=== PATIENT | female | born 1990 | race Two or more races ===

== ENCOUNTER 2023-07-21 13:41 | Outpatient (CLI) | payer OTHER | END 2023-07-21 13:44 | disposition home or self-care (01) | LOC: PRENATAL 13:41 | PROVIDERS: ATTEND Obstetrics & Gynecology Maternal & Fetal Medicine | DX: O36.80X0 Pregnancy with inconclusive fetal viability, not applicable or unspecified (principal); Z36.82 Encounter for antenatal screening for nuchal translucency; Z36.9 Encounter for antenatal screening, unspecified; Z3A.13 13 weeks gestation of pregnancy ==

== ENCOUNTER 2023-09-05 12:52 | Outpatient (CLI) | payer OTHER | END 2023-09-05 12:53 | disposition home or self-care (01) | LOC: PRENATAL 12:52 | PROVIDERS: ATTEND Obstetrics & Gynecology Maternal & Fetal Medicine | DX: O35.3XX0 Maternal care for (suspected) damage to fetus from viral disease in mother, not applicable or unspecified (principal); O44.00 Complete placenta previa NOS or without hemorrhage, unspecified trimester; O34.10 Maternal care for benign tumor of corpus uteri, unspecified trimester; D68.69 Other thrombophilia; Z3A.19 19 weeks gestation of pregnancy ==

== ENCOUNTER 2024-01-13 15:30 | Inpatient (IN) | payer OTHER ==
[~2024-01-13] VITALS: Ht 165.1 cm; Wt 73.9 kg
[2024-01-19] MEDS ORDERED: ADULT LOW DOSE81 M1 PO (07:11)
[2024-01-19] MEDS ORDERED: PRENATAL TABLE1 EAC1 PO (07:11)
[2024-01-19 08:39] LABS: HEMATOCRIT 34.4 % (36.0-45.00); HEMOGLOBIN 11.6 g/dL (12.0-15.00); MEAN CELL VOLUME 85.1 fL (80.00-100.00); MEAN CORPUSCULAR HEMOGLOBIN 28.7 pg (27.00-32.0); MEAN CORPUSCULAR HGB CONC 33.7 g/dl (32.0-36.0); RED BLOOD COUNT 4.05 M/uL (4.00-6.00); RED CELL DISTRIBUTION WIDTH 14.4 % (11.5-14.5)
[2024-01-19 09:14] LABS: ALBUMIN 2.4 gm/dL (3.4-5.0); BILIRUBIN TOTAL 0.76 mg/dL (0.3-1.2); CALCIUM 7.9 mg/dL (8.5-10.1); CREATININE SERUM 1.06 mg/dL (0.55-1.02); GFR 58.99; GLOBULINA 3.1 G/DL (2.4-3.5); POTASSIUM 4.35 mEq/L (3.5-5.1); TOTAL PROTEIN 5.5 gm/dL (6.4-8.2); URIC ACID 6.1 mg/dL (2.5-7.5)
[2024-01-19 09:18] LABS: INR < 0.93; PARTIAL THROMBOPLASTIN TIME 29.3 SECONDS (22.0-34.0); PROTHROMBIN TIME 9.6 SECONDS (9.0-11.5)
[2024-01-19 09:19] LABS: FIBRINOGEN 604 mg/dL (187.0-446.0)
[2024-01-19] MEDS ORDERED: MAGNESIUM SULFATE IN WATER 4 GM/100 ML PIGGYBACK IV ONE (09:23)
[2024-01-19 09:29] LABS: URINE APPEARANCE Cloudy; URINE BILIRRUBIN Small (NEGATIVE); URINE BLOOD Large; URINE COLOR Dark Yellow; URINE GLUCOSE Negative (NEGATIVE); URINE LEUKOCYTE Trace; URINE NITRATE Negative; URINE PROTEIN >=1000 (NEGATIVE); URINE UROBILINOGEN 0.2 E.U./dl
[2024-01-19] MEDS ORDERED: MAGNESIUM SULFATE IN WATER 100 ML IV ONE (09:30)
[2024-01-19] MEDS ORDERED: MAGNESIUM SULFATE IN WATER 500 ML IV SCH (09:30)
[2024-01-19 09:31] LABS: PLATELET COUNT 74 K/uL (150-450)
[2024-01-19 09:36] LABS: URINE BACTERIA 4147.7 uL (0.0-1933); URINE EPITHELIAL CELLS 41.8 uL (0.0-38.8); URINE RBC 89.1 uL (0.0-20.8); URINE WBC 52.2 uL (0.0-23.2)
[2024-01-19 09:48] LABS: URINE CRYSTALS FEW /HPF
[2024-01-19] MEDS ORDERED: MAGNESIUM SULFATE IN WATER 0.04 GM/ML IV.SOLN IV ONE ×2 (09:57→13:35)
[2024-01-19] MEDS ORDERED: ERYTHROMYCIN BASE 1 GM TUBE OP ONE ×2 (10:48→11:30)
[2024-01-19] MEDS ORDERED: OXYTOCIN 10 UNITS/ML VIAL ONE ×2 (10:49→16:58)
[2024-01-19] MEDS ORDERED: CEFAZOLIN SODIUM 1,000 MG VIAL ONE (11:03)
[2024-01-19] MEDS ORDERED: CEFAZOLIN SODIUM 1,000 MG VIAL IV SCH (11:15)
[2024-01-19] MEDS ORDERED: OXYTOCIN 1,000 ML IV SCH ×2 (11:30→14:30)
[2024-01-19] MEDS ORDERED: hydrALAZINE HCL 20 MG VIAL ONE (12:09)
[2024-01-19] MEDS ORDERED: hydrALAZINE HCL 20 MG VIAL IV ONE (12:30)
[2024-01-19] MEDS ORDERED: SUGAMMADEX SODIUM 200 MG/2 ML VIAL IV ONE ×2 (13:04→13:15)
[2024-01-19] MEDS ORDERED: CHLORHEXIDINE GLUCONATE 120 ML BOTTLE TOP ONE (13:17)
[2024-01-19] MEDS ORDERED: MEPERIDINE HCL/PF 50 MG/ML VIAL IM PRN (13:30)
[2024-01-19] MEDS ORDERED: ENALAPRILAT DIHYDRATE 1.25 MG/ML VIAL IV ONE (13:34)
[2024-01-19] MEDS ORDERED: RINGERS SOLUTION,LACTATED 1,000 ML IV SCH (14:30)
[2024-01-19 18:45] LABS: HEMATOCRIT 26.8 % (36.0-45.00); MEAN CELL VOLUME 85.6 fL (80.00-100.00); MEAN CORPUSCULAR HGB CONC 33.4 g/dl (32.0-36.0); RED BLOOD COUNT 3.13 M/uL (4.00-6.00); RED CELL DISTRIBUTION WIDTH 14.7 % (11.5-14.5)
[2024-01-19 18:58] LABS: FIBRINOGEN 441 mg/dL (187.0-446.0); HEMOGLOBIN 8.9 g/dL (12.0-15.00); INR < 0.93; MEAN CORPUSCULAR HEMOGLOBIN 28.4 pg (27.00-32.0); PARTIAL THROMBOPLASTIN TIME 26.7 SECONDS (22.0-34.0); PLATELET COUNT 98 K/uL (150-450); PROTHROMBIN TIME 9.8 SECONDS (9.0-11.5)
[2024-01-19 19:00] LABS: ALBUMIN 1.9 gm/dL (3.4-5.0); BILIRUBIN TOTAL 0.54 mg/dL (0.3-1.2); CALCIUM 8.1 mg/dL (8.5-10.1); CREATININE SERUM 1.55 mg/dL (0.55-1.02); GFR 38.05; GLOBULINA 2.6 G/DL (2.4-3.5); POTASSIUM 4.48 mEq/L (3.5-5.1); TOTAL PROTEIN 4.5 gm/dL (6.4-8.2)
[2024-01-19 19:12] LABS: MAGNESIUM 6.6 mg/dL (1.8-2.4); URIC ACID 6.6 mg/dL (2.5-7.5)
[2024-01-19] MEDS ORDERED: PROMETHAZINE HCL 25 MG/ML AMPUL IM PRN (23:45)
[2024-01-20 00:44] LABS: HEMATOCRIT 24.1 % (36.0-45.00); MEAN CELL VOLUME 86.7 fL (80.00-100.00); MEAN CORPUSCULAR HGB CONC 33.8 g/dl (32.0-36.0); RED BLOOD COUNT 2.78 M/uL (4.00-6.00); RED CELL DISTRIBUTION WIDTH 14.3 % (11.5-14.5)
[2024-01-20 00:45] LABS: HEMOGLOBIN 8.2 g/dL (12.0-15.00); MEAN CORPUSCULAR HEMOGLOBIN 29.4 pg (27.00-32.0)
[2024-01-20 00:56] LABS: FIBRINOGEN 448 mg/dL (187.0-446.0); INR < 0.93; PARTIAL THROMBOPLASTIN TIME 26.4 SECONDS (22.0-34.0); PROTHROMBIN TIME 9.4 SECONDS (9.0-11.5)
[2024-01-20 00:58] LABS: ALBUMIN 1.8 gm/dL (3.4-5.0); BILIRUBIN TOTAL 0.6 mg/dL (0.3-1.2); CALCIUM 7.6 mg/dL (8.5-10.1); CREATININE SERUM 1.61 mg/dL (0.55-1.02); GFR 36.42; GLOBULINA 2.5 G/DL (2.4-3.5); POTASSIUM 4.82 mEq/L (3.5-5.1); TOTAL PROTEIN 4.3 gm/dL (6.4-8.2)
[2024-01-20 01:12] LABS: MAGNESIUM 9.4 mg/dL (1.8-2.4)
[2024-01-20 01:20] LABS: PLATELET COUNT 73 K/uL (150-450)
[2024-01-20 07:28] LABS: MEAN CELL VOLUME 85.3 fL (80.00-100.00); RED BLOOD COUNT 2.61 M/uL (4.00-6.00); RED CELL DISTRIBUTION WIDTH 14.7 % (11.5-14.5)
[2024-01-20 07:59] LABS: FIBRINOGEN 571 mg/dL (187.0-446.0); INR < 0.93; PARTIAL THROMBOPLASTIN TIME 25.9 SECONDS (22.0-34.0); PROTHROMBIN TIME 9.2 SECONDS (9.0-11.5)
[2024-01-20 08:12] LABS: ALBUMIN 1.8 gm/dL (3.4-5.0); BILIRUBIN TOTAL 0.54 mg/dL (0.3-1.2); CALCIUM 7.7 mg/dL (8.5-10.1); CREATININE SERUM 1.9 mg/dL (0.55-1.02); GFR 30.08; GLOBULINA 2.6 G/DL (2.4-3.5); HEMATOCRIT 22.2 % (36.0-45.00); HEMOGLOBIN 7.6 g/dL (12.0-15.00); MEAN CORPUSCULAR HEMOGLOBIN 29.1 pg (27.00-32.0); POTASSIUM 4.91 mEq/L (3.5-5.1); TOTAL PROTEIN 4.4 gm/dL (6.4-8.2)
[2024-01-20 08:39] LABS: MAGNESIUM 8.9 mg/dL (1.8-2.4)
[2024-01-20 08:52] LABS: PLATELET COUNT 64 K/uL (150-450)
[2024-01-20] MEDS ORDERED: PROMETHAZINE HCL 25 MG/ML AMPUL ONE (09:12)
[2024-01-20] MEDS ORDERED: CALCIUM GLUCONATE 100 MG/ML VIAL IV STA (09:28)
[2024-01-20 14:44] LABS: ALBUMIN 1.8 gm/dL (3.4-5.0); BILIRUBIN TOTAL 0.51 mg/dL (0.3-1.2); CALCIUM 7.6 mg/dL (8.5-10.1); CREATININE SERUM 1.99 mg/dL (0.55-1.02); GFR 28.52; GLOBULINA 2.8 G/DL (2.4-3.5); POTASSIUM 4.71 mEq/L (3.5-5.1); TOTAL PROTEIN 4.6 gm/dL (6.4-8.2)
[2024-01-20 15:11] LABS: MEAN CELL VOLUME 85.8 fL (80.00-100.00); MEAN CORPUSCULAR HGB CONC 33.7 g/dl (32.0-36.0); RED CELL DISTRIBUTION WIDTH 14.7 % (11.5-14.5)
[2024-01-20 15:13] LABS: MAGNESIUM 8.2 mg/dL (1.8-2.4)
[2024-01-20 15:32] LABS: MEAN CORPUSCULAR HEMOGLOBIN 28.8 pg (27.00-32.0)
[2024-01-20 15:37] LABS: HEMATOCRIT 21.4 % (36.0-45.00)
[2024-01-20 15:50] LABS: HEMOGLOBIN 7.2 g/dL (12.0-15.00); PLATELET COUNT 81 K/uL (150-450)
[2024-01-20 16:41] LABS: PROTHROMBIN TIME < 8.6 SECONDS (9.0-11.5)
[2024-01-20 16:42] LABS: FIBRINOGEN 576 mg/dL (187.0-446.0); INR < 0.84; PARTIAL THROMBOPLASTIN TIME < 19.4 SECONDS (22.0-34.0)
[2024-01-20] MEDS ORDERED: OxyCODONE HCL/APAP UD (PERCOCET) PO PRN (18:15)
[2024-01-20 18:24] LABS: URINE APPEARANCE Clear; URINE BILIRRUBIN Negative (NEGATIVE); URINE BLOOD Large; URINE COLOR Yellow; URINE GLUCOSE Negative (NEGATIVE); URINE LEUKOCYTE Negative; URINE NITRATE Negative; URINE UROBILINOGEN 0.2 E.U./dl
[2024-01-20 18:27] LABS: URINE BACTERIA 27.7 uL (0.0-1933); URINE EPITHELIAL CELLS 12.8 uL (0.0-38.8); URINE RBC 167.9 uL (0.0-20.8); URINE WBC 11.2 uL (0.0-23.2)
[2024-01-20 18:39] LABS: URINE PROTEIN 100 (NEGATIVE)
[2024-01-21 06:25] LABS: MEAN CELL VOLUME 85.5 fL (80.00-100.00); MEAN CORPUSCULAR HGB CONC 34.6 g/dl (32.0-36.0); RED BLOOD COUNT 2.07 M/uL (4.00-6.00)
[2024-01-21 06:29] LABS: MEAN CORPUSCULAR HEMOGLOBIN 29.4 pg (27.00-32.0)
[2024-01-21 06:30] LABS: HEMATOCRIT 17.7 % (36.0-45.00)
[2024-01-21 06:34] LABS: HEMOGLOBIN 6.1 g/dL (12.0-15.00)
[2024-01-21 06:51] LABS: INR < 0.93; PARTIAL THROMBOPLASTIN TIME 27.1 SECONDS (22.0-34.0); PROTHROMBIN TIME 9.2 SECONDS (9.0-11.5)
[2024-01-21 06:56] LABS: FIBRINOGEN 843 mg/dL (187.0-446.0)
[2024-01-21 06:58] LABS: ALBUMIN 1.6 gm/dL (3.4-5.0); BILIRUBIN TOTAL 0.41 mg/dL (0.3-1.2); CREATININE SERUM 1.81 mg/dL (0.55-1.02); GFR 31.81; GLOBULINA 2.4 G/DL (2.4-3.5); POTASSIUM 4.13 mEq/L (3.5-5.1)
[2024-01-21 07:04] LABS: MAGNESIUM 4.9 mg/dL (1.8-2.4)
[2024-01-21 07:44] LABS: PLATELET COUNT 57 K/uL (150-450)
[2024-01-21] MEDS ORDERED: PNV,CALCIUM 72/IRON/FOLIC ACID 1 TAB TABLET PO SCH (09:00)
[2024-01-21] MEDS ORDERED: DOCUSATE SODIUM 100MG CAP PO SCH (09:00)
[2024-01-21] MEDS ORDERED: LABETALOL HCL 200 MG TABLET PO SCH (10:00)
[2024-01-21 18:46] LABS: MEAN CELL VOLUME 86.5 fL (80.00-100.00); MEAN CORPUSCULAR HGB CONC 34.5 g/dl (32.0-36.0); RED BLOOD COUNT 2.66 M/uL (4.00-6.00)
[2024-01-21 19:39] LABS: MEAN CORPUSCULAR HEMOGLOBIN 29.6 pg (27.00-32.0)
[2024-01-21 19:40] LABS: HEMOGLOBIN 7.9 g/dL (12.0-15.00); PLATELET COUNT 66 K/uL (150-450)
[2024-01-22 06:28] LABS: MEAN CORPUSCULAR HGB CONC 34.8 g/dl (32.0-36.0); RED BLOOD COUNT 2.55 M/uL (4.00-6.00); RED CELL DISTRIBUTION WIDTH 15.4 % (11.5-14.5)
[2024-01-22 06:41] LABS: INR < 0.93; PARTIAL THROMBOPLASTIN TIME 24.9 SECONDS (22.0-34.0)
[2024-01-22 06:46] LABS: ALBUMIN 1.6 gm/dL (3.4-5.0); BILIRUBIN TOTAL 0.42 mg/dL (0.3-1.2); CALCIUM 7.5 mg/dL (8.5-10.1); CREATININE SERUM 1.74 mg/dL (0.55-1.02); GFR 33.3; GLOBULINA 2.6 G/DL (2.4-3.5); POTASSIUM 4.18 mEq/L (3.5-5.1); TOTAL PROTEIN 4.2 gm/dL (6.4-8.2)
[2024-01-22 08:42] LABS: MEAN CORPUSCULAR HEMOGLOBIN 29.8 pg (27.00-32.0)
[2024-01-22 08:43] LABS: HEMOGLOBIN 7.6 g/dL (12.0-15.00)
[2024-01-22 10:19] LABS: PLATELET COUNT 71 K/uL (150-450)
[2024-01-22 20:17] LABS: HEMATOCRIT 28.9 % (36.0-45.00); MEAN CELL VOLUME 84.8 fL (80.00-100.00); MEAN CORPUSCULAR HGB CONC 34.6 g/dl (32.0-36.0); RED BLOOD COUNT 3.41 M/uL (4.00-6.00); RED CELL DISTRIBUTION WIDTH 16.1 % (11.5-14.5)
[2024-01-22 20:19] LABS: MEAN CORPUSCULAR HEMOGLOBIN 29.3 pg (27.00-32.0)
[2024-01-22 20:21] LABS: PLATELET COUNT 83 K/uL (150-450)
[2024-01-22] MEDS ORDERED: ACETAMINOPHEN 500 MG GEL..CAP PO ONE (20:58)
[2024-01-22] MEDS ORDERED: ACETAMINOPHEN 500 MG GEL..CAP PO PRN (21:15)
[2024-01-23 08:18] LABS: HEMATOCRIT 31.3 % (36.0-45.00); HEMOGLOBIN 10.6 g/dL (12.0-15.00); MEAN CORPUSCULAR HEMOGLOBIN 29.3 pg (27.00-32.0); RED BLOOD COUNT 3.64 M/uL (4.00-6.00); RED CELL DISTRIBUTION WIDTH 16.2 % (11.5-14.5)
[2024-01-23 08:30] LABS: INR < 0.93; PARTIAL THROMBOPLASTIN TIME 25.6 SECONDS (22.0-34.0); PROTHROMBIN TIME 9.1 SECONDS (9.0-11.5)
[2024-01-23 08:49] LABS: ALBUMIN 1.8 gm/dL (3.4-5.0); BILIRUBIN TOTAL 0.44 mg/dL (0.3-1.2); CALCIUM 7.8 mg/dL (8.5-10.1); CREATININE SERUM 1.77 mg/dL (0.55-1.02); GFR 32.65; GLOBULINA 3.1 G/DL (2.4-3.5); POTASSIUM 3.81 mEq/L (3.5-5.1); TOTAL PROTEIN 4.9 gm/dL (6.4-8.2)
[2024-01-23 10:00] LABS: PLATELET COUNT 104 K/uL (150-450)
[2024-01-23] MEDS ORDERED: LABETALOL HCL 100 MG TABLET PO STA (10:58)
[2024-01-23] MEDS ORDERED: LABETALOL HCL 300 MG TABLET PO SCH (21:00)
[2024-01-24] MEDS ORDERED: LABETALOL HCL 100 MG TABLET PO STA (00:50)
[2024-01-24 08:55] LABS: HEMATOCRIT 30.1 % (36.0-45.00); HEMOGLOBIN 10.2 g/dL (12.0-15.00); MEAN CELL VOLUME 87.2 fL (80.00-100.00); MEAN CORPUSCULAR HEMOGLOBIN 29.6 pg (27.00-32.0); MEAN CORPUSCULAR HGB CONC 33.9 g/dl (32.0-36.0); RED BLOOD COUNT 3.46 M/uL (4.00-6.00); RED CELL DISTRIBUTION WIDTH 16.2 % (11.5-14.5)
[2024-01-24 09:00] LABS: ALBUMIN 1.8 gm/dL (3.4-5.0); BILIRUBIN TOTAL 0.48 mg/dL (0.3-1.2); CALCIUM 7.9 mg/dL (8.5-10.1); CREATININE SERUM 1.64 mg/dL (0.55-1.02); GFR 35.65; POTASSIUM 4.03 mEq/L (3.5-5.1); TOTAL PROTEIN 4.8 gm/dL (6.4-8.2)
[2024-01-24] MEDS ORDERED: LABETALOL HCL 200 MG TABLET PO SCH (09:00)
[2024-01-24] MEDS ORDERED: LABETALOL HCL 300 MG TABLET PO SCH (09:00)
[2024-01-24 09:12] LABS: PLATELET COUNT 127 K/uL (150-450)
[2024-01-24] MEDS ORDERED: LABETALOL HCL100 MG PO (14:24)
[2024-01-24] MEDS ORDERED: TRANDATE300 MG PO (14:24)
[2024-01-24] MEDS ORDERED: INTEGRA PLUS C1 EACH PO (14:24)
[2024-01-25] MEDS ORDERED: IRON325 MG PO (18:10)
[2024-01-25] MEDS ORDERED: PANADOL EXTRA500 MG PO (18:10)
[2024-01-25] MEDS ORDERED: LABETALOL HCL200 MG PO (18:11)
== END 2024-01-24 14:32 | disposition home or self-care (01) | DRG 787 ==
LOC: OB/GYN 15:30 → LDR 01-19 06:36 → OB/GYN 01-19 11:50 → LDR 01-22 14:01 → OB/GYN 01-23 09:54
PROVIDERS: ADMIT Obstetrics & Gynecology; ATTEND Obstetrics & Gynecology
PROC: 4A1HXCZ Monitoring of Products of Conception, Cardiac Rate, External Approach (ICD-10-PCS; 2024-01-19)
PROC: 10D00Z1 Extraction of Products of Conception, Low, Open Approach (ICD-10-PCS; principal; 2024-01-19 11:15)
PROC: 30233N1 Transfusion of Nonautologous Red Blood Cells into Peripheral Vein, Percutaneous Approach (ICD-10-PCS; 2024-01-21)
DX: O14.24 HELLP syndrome, complicating childbirth (principal); D62 Acute posthemorrhagic anemia; O32.2XX0 Maternal care for transverse and oblique lie, not applicable or unspecified; O99.02 Anemia complicating childbirth; O34.13 Maternal care for benign tumor of corpus uteri, third trimester; D25.9 Leiomyoma of uterus, unspecified; Z3A.39 39 weeks gestation of pregnancy; Z37.0 Single live birth; Z20.822 Contact with and (suspected) exposure to COVID-19

== ENCOUNTER 2024-01-25 07:46 | Inpatient (IN) | payer OTHER ==
[~2024-01-25] VITALS: Ht 165.1 cm; Wt 74.8 kg
[~2024-01-25 07:46] MED LIST: ADULT LOW DOSE81 M1 PO; INTEGRA PLUS C1 EACH PO; LABETALOL HCL100 MG PO; PRENATAL TABLE1 EAC1 PO; TRANDATE300 MG PO
--- NOTE | 2024-01-25 08:13 | NUR ---
SE RECIBE PACIENTE EN AREA DE CRITICO DONDE SE UBICA EN CAMA #3 POR SINTOMAS DE DIFICULTAD RESPIRATORIA Y NIVELES DE PRESION ALTOS. AL MOMENTO SE MANTIENE EN POSICION SEMI SENTADA SE REALIZA EKG Y SE PRESENTA A DR. BREWER. SE COLOCA EN MONITOR CARDIACO Y OXIMETRIA DE PULSO CONTINUA, SE COLOCA CANULA NASAL A 3LT/MIN. SE REALIZA CANALIZACION EN BRAZO NIKOS CON ANGIO #20.
--- NOTE | 2024-01-25 08:18 | NUR ---
PTE DE LA ANA.CASTLE QUIEN REFIERE SHANNON A KEENAN EL LUNES, SE OBSERVA PTE CON EXTREMIDADES SUPERIORES E INFERIORES EDEMATOSAS.
[2024-01-25 08:27] LABS: HEMATOCRIT 33.5 % (36.0-45.00); HEMOGLOBIN 11.4 g/dL (12.0-15.00); MEAN CELL VOLUME 87.1 fL (80.00-100.00); MEAN CORPUSCULAR HEMOGLOBIN 29.7 pg (27.00-32.0); MEAN CORPUSCULAR HGB CONC 34.1 g/dl (32.0-36.0); PLATELET COUNT 160 K/uL (150-450); RED BLOOD COUNT 3.85 M/uL (4.00-6.00); RED CELL DISTRIBUTION WIDTH 16.1 % (11.5-14.5)
[2024-01-25] MEDS ORDERED: LABETALOL HCL 100 MG/20 ML ML ONE (08:58)
[2024-01-25 09:00] LABS: INR < 0.93; MAGNESIUM 2.5 mg/dL (1.8-2.4)
[2024-01-25] MEDS ORDERED: LABETALOL HCL 20MG/4ML SYRINGE IV ONE (09:00)
[2024-01-25 09:02] LABS: ALBUMIN 2.2 gm/dL (3.4-5.0); BILIRUBIN TOTAL 0.51 mg/dL (0.3-1.2); CALCIUM 8.4 mg/dL (8.5-10.1); CREATININE SERUM 1.63 mg/dL (0.55-1.02); GFR 35.9; POTASSIUM 3.61 mEq/L (3.5-5.1); TOTAL PROTEIN 6.2 gm/dL (6.4-8.2)
[2024-01-25 09:04] LABS: PARTIAL THROMBOPLASTIN TIME 25.2 SECONDS (22.0-34.0); PROTHROMBIN TIME 9.7 SECONDS (9.0-11.5)
[2024-01-25 09:18] LABS: ABG PO2 94.3 mmHg (80-100); ABG pCO2 36.6 mmHg (35-45); BASE EXCESS 0.5 mmol/l; BICARBONATE 24.3 mmol/l (23-25); SaO2 97.6 %; Tco2 25.4 mmol/l; allen test SATISFACTORY; o2 32 %; puncture site RADIAL RIGHT
[2024-01-25] MEDS ORDERED: hydrALAZINE HCL 20 MG VIAL IV ONE ×4 (09:30→12:15)
[2024-01-25] MEDS ORDERED: hydrALAZINE HCL 20 MG VIAL ONE ×3 (09:34→10:59)
[2024-01-25 10:28] LABS: PH,URINE 7.5 (5.0-8.0); URINE APPEARANCE Clear; URINE BILIRRUBIN Negative (NEGATIVE); URINE BLOOD Trace; URINE COLOR Yellow; URINE GLUCOSE Negative (NEGATIVE); URINE KETONE Negative (NEGATIVE); URINE LEUKOCYTE Negative; URINE NITRATE Negative; URINE UROBILINOGEN 0.2 E.U./dl
[2024-01-25 10:32] LABS: URINE BACTERIA 104.4 uL (0.0-1933); URINE EPITHELIAL CELLS 17.4 uL (0.0-38.8); URINE RBC 14.3 uL (0.0-20.8); URINE WBC 6.1 uL (0.0-23.2)
[2024-01-25 10:33] LABS: URINE CAST 0.45 uL (0.0-1.40); URINE PROTEIN 100 (NEGATIVE)
[2024-01-25] MEDS ORDERED: hydrALAZINE HCL 25 MG TABLET PO SCH ×2 (15:45→17:00)
[2024-01-25] MEDS ORDERED: LABETALOL HCL 200 MG TABLET PO SCH (17:00)
[2024-01-25] MEDS ORDERED: LABETALOL HCL 100 MG TABLET PO SCH (17:00)
[2024-01-25] MEDS ORDERED: IRON325 MG PO (18:10)
[2024-01-25] MEDS ORDERED: PANADOL EXTRA500 MG PO (18:10)
[2024-01-25] MEDS ORDERED: LABETALOL HCL200 MG PO (18:11)
[2024-01-26] MEDS ORDERED: hydrALAZINE HCL 25 MG TABLET PO SCH (01:00)
[2024-01-26] MEDS ORDERED: hydrALAZINE HCL 50 MG TABLET PO SCH (01:00)
[2024-01-26 06:42] LABS: HEMATOCRIT 29.9 % (36.0-45.00); HEMOGLOBIN 10.2 g/dL (12.0-15.00); MEAN CELL VOLUME 86.2 fL (80.00-100.00); MEAN CORPUSCULAR HEMOGLOBIN 29.5 pg (27.00-32.0); MEAN CORPUSCULAR HGB CONC 34.2 g/dl (32.0-36.0); PLATELET COUNT 173 K/uL (150-450); RED BLOOD COUNT 3.46 M/uL (4.00-6.00); RED CELL DISTRIBUTION WIDTH 16.3 % (11.5-14.5)
[2024-01-26 07:30] LABS: ALBUMIN 2.1 gm/dL (3.4-5.0); BILIRUBIN TOTAL 0.42 mg/dL (0.3-1.2); CALCIUM 8.2 mg/dL (8.5-10.1); CREATININE SERUM 1.5 mg/dL (0.55-1.02); GFR 39.52; GLOBULINA 2.9 G/DL (2.4-3.5); POTASSIUM 3.88 mEq/L (3.5-5.1)
[2024-01-26] MEDS ORDERED: PNV,CALCIUM 72/IRON/FOLIC ACID 1 TAB TABLET PO SCH (12:00)
[2024-01-26] MEDS ORDERED: FUROsemide 40 MG/4 ML VIAL IV STA (15:40)
[2024-01-26] MEDS ORDERED: RINGERS SOLUTION,LACTATED 1,000 ML IV SCH (16:30)
[2024-01-27] MEDS ORDERED: hydrALAZINE HCL 50 MG TABLET PO SCH ×2 (01:00→13:00)
[2024-01-27] MEDS ORDERED: hydrALAZINE HCL 50 MG,hydrALAZINE HCL 25 MG PO SCH (06:30)
[2024-01-27] MEDS ORDERED: LABETALOL HCL 100 MG/20 ML ML ONE ×2 (07:05→07:35)
[2024-01-27] MEDS ORDERED: LABETALOL HCL 200 MG/40 ML VIAL IV STA ×2 (07:11→07:41)
[2024-01-27 08:35] LABS: ALBUMIN 2.3 gm/dL (3.4-5.0); BILIRUBIN TOTAL 0.45 mg/dL (0.3-1.2); CREATININE SERUM 1.46 mg/dL (0.55-1.02); GFR 40.77; GLOBULINA 3.1 G/DL (2.4-3.5); POTASSIUM 3.7 mEq/L (3.5-5.1); TOTAL PROTEIN 5.4 gm/dL (6.4-8.2)
[2024-01-27] MEDS ORDERED: FUROsemide 20 MG/2 ML VIAL IV SCH ×2 (11:03→17:42)
[2024-01-27] MEDS ORDERED: FUROsemide 20 MG/2 ML VIAL ONE (11:15)
[2024-01-27] MEDS ORDERED: NIFEDIPINE 30 MG TAB.SA.OSM PO SCH (12:15)
[2024-01-28 06:29] LABS: HEMATOCRIT 32.7 % (36.0-45.00); HEMOGLOBIN 11.2 g/dL (12.0-15.00); MEAN CELL VOLUME 85.2 fL (80.00-100.00); MEAN CORPUSCULAR HEMOGLOBIN 29.2 pg (27.00-32.0); MEAN CORPUSCULAR HGB CONC 34.2 g/dl (32.0-36.0); PLATELET COUNT 222 K/uL (150-450); RED BLOOD COUNT 3.84 M/uL (4.00-6.00); RED CELL DISTRIBUTION WIDTH 16.1 % (11.5-14.5)
[2024-01-28 07:32] LABS: ALBUMIN 2.4 gm/dL (3.4-5.0); BILIRUBIN TOTAL 0.48 mg/dL (0.3-1.2); CALCIUM 8.6 mg/dL (8.5-10.1); CREATININE SERUM 1.26 mg/dL (0.55-1.02); GFR 48.32; GLOBULINA 3.2 G/DL (2.4-3.5); POTASSIUM 3.54 mEq/L (3.5-5.1); TOTAL PROTEIN 5.6 gm/dL (6.4-8.2)
[2024-01-28] MEDS ORDERED: FUROsemide 20 MG/2 ML VIAL IV SCH (09:00)
[2024-01-28] MEDS ORDERED: ADULT LOW DOSE81 M1 PO (12:15)
[2024-01-28] MEDS ORDERED: LASIX20 MG PO (12:15)
[2024-01-28] MEDS ORDERED: NIFEDIPINE ER30 M1 PO (12:20)
[2024-01-28] MEDS ORDERED: LABETALOL HCL200 MG PO (12:21)
[2024-01-28] MEDS ORDERED: HYDRALAZINE HC100 MG PO (12:22)
== END 2024-01-28 14:28 | disposition home or self-care (01) | DRG 776 ==
LOC: ER 07:47 → LDR 16:02
PROVIDERS: General Practice; Internal Medicine; Specialist; ADMIT Obstetrics & Gynecology; ATTEND Obstetrics & Gynecology
PROC: 4A033R1 Measurement of Arterial Saturation, Peripheral, Percutaneous Approach (ICD-10-PCS; principal; 2024-01-25)
PROC: BB24ZZZ Computerized Tomography (CT Scan) of Bilateral Lungs (ICD-10-PCS; 2024-01-26)
PROC: B246ZZZ Ultrasonography of Right and Left Heart (ICD-10-PCS; 2024-01-26)
DX: O14.25 HELLP syndrome, complicating the puerperium (principal); O99.13 Other diseases of the blood and blood-forming organs and certain disorders involving the immune mechanism complicating the puerperium; J90 Pleural effusion, not elsewhere classified; D68.2 Hereditary deficiency of other clotting factors; O99.53 Diseases of the respiratory system complicating the puerperium; O16.5 Unspecified maternal hypertension, complicating the puerperium; Z20.822 Contact with and (suspected) exposure to COVID-19